=== PATIENT | female | born 1985 | race Caucasian/White ===

== ENCOUNTER 2017-05-17 22:20 | Emergency (ER) | payer OTHER ==
[~2017-05-17] VITALS: Ht 170.2 cm; Wt 106.9 kg
[2017-05-18] MEDS ORDERED: NORCO 5/3251 TABLET PO (01:08)
[2017-05-18] MEDS ORDERED: MOTRIN800 MG PO (01:08)
[2017-05-18 01:41] VITALS: BP 128/82
== END 2017-05-18 01:42 | disposition home or self-care (01) ==
LOC: EME 22:20
PROC: 2W39X1Z Immobilization of Left Upper Extremity using Splint (ICD-10-PCS; principal; 2017-05-18)
DX: S62.305A Unspecified fracture of fourth metacarpal bone, left hand, initial encounter for closed fracture (principal); W23.0XXA Caught, crushed, jammed, or pinched between moving objects, initial encounter; F17.200 Nicotine dependence, unspecified, uncomplicated; Z88.2 Allergy status to sulfonamides
CPT/HCPCS: 73130; 99281; 99284

== ENCOUNTER 2017-06-20 03:35 | Emergency (ER) | payer OTHER ==
[~2017-06-20] VITALS: Ht 170.2 cm; Wt 100.0 kg
[~2017-06-20 03:35] MED LIST: MOTRIN800 MG PO; MUCINEX1200 MG PO; NORCO 5/3251 TABLET PO
[2017-06-20] MEDS ORDERED: NAPROSYN500 MG PO (04:35)
[2017-06-20] MEDS ORDERED: NORCO 5/3251 TABLET PO (04:35)
[2017-06-20 04:40] VITALS: BP 126/83
== END 2017-06-20 04:41 | disposition home or self-care (01) ==
LOC: EME 03:35
DX: S92.415A Nondisplaced fracture of proximal phalanx of left great toe, initial encounter for closed fracture (principal); W22.8XXA Striking against or struck by other objects, initial encounter; Y92.009 Unspecified place in unspecified non-institutional (private) residence as the place of occurrence of the external cause; F17.200 Nicotine dependence, unspecified, uncomplicated
CPT/HCPCS: 73630; 99281; 99283